=== PATIENT | female | born 1950 | race Caucasian/White ===

== ENCOUNTER 2019-02-14 06:48 | Day surgery (SDC) | payer OTHER ==
[2019-02-14] MEDS ORDERED: FENTAnyl 50 MCG/ML VIAL (08:54)
[2019-02-14] MEDS ORDERED: PROPOFOL 20 ML (08:54)
== END 2019-02-14 10:11 | disposition home or self-care (01) ==
LOC: GIL 06:48
DX: Z12.11 Encounter for screening for malignant neoplasm of colon (principal); K64.8 Other hemorrhoids; E07.9 Disorder of thyroid, unspecified; R10.31 Right lower quadrant pain
CPT/HCPCS: 45378